=== PATIENT | male | born 1955 | race Caucasian/White ===

== ENCOUNTER 2018-12-20 07:02 | Emergency (ER) | payer MEDICAID ==
[~2018-12-20] VITALS: Ht 170.2 cm; Wt 99.8 kg
--- NOTE | 2018-12-20 07:25 | NUR ---
C/C "I HAVE FREQUENT AND UNCONTROLABLE URINE", +HEMATURIA, +DYSURIA, +DIARRHEA, PATIENT GAVE UA SAMPLE, BREATHING EVEN AND UNLABORED, NO SOB NOTED, PLACED ON MONITOR. NEEDS ATTENDED, WILL CONTINUE TO MONITOR.
[2018-12-20 07:40] LABS: BASOPHILS # (AUTO) 0.1 /CMM (0.0-0.2); BASOPHILS % (AUTO) 1.1 % (0.0-2.0); HEMATOCRIT 43 % (39-51); HEMOGLOBIN 14.4 g/dL (13.5-17.5); LYMPHOCYTES # (AUTO) 2.2 /CMM (0.8-4.8); MEAN CORPUSCULAR HGB CONC 33 g/dl (31.0-36.0); MEAN CORPUSCULAR VOLUME 94 fL (80-96); MONOCYTES # (AUTO) 1.6 /CMM (0.1-1.30); MONOCYTES % (AUTO) 12.9 % (2.0-12.0); NEUTROPHILS # (AUTO) 8.1 /CMM (1.8-8.9); PLATELET COUNT (AUTO) 222 /CMM (150-450); WHITE BLOOD COUNT (AUTO) 12.1 K/uL (4.3-11.0)
[2018-12-20 07:46] LABS: CALCIUM, SERUM 8.5 mg/dL (8.5-10.1)
[2018-12-20 07:48] LABS: APPEARANCE,URINE Cloudy (CLEAR); BILIRUBIN,URINE Negative (NEGATIVE); BLOOD, URINE Moderate Ery/uL (NEGATIVE); COLOR,URINE Yellow (YELLOW); KETONES,URINE 15 (NEGATIVE); LEUKOCYTE ESTERASE ,URINE Large (NEGATIVE); NITRITE, URINE Positive (NEGATIVE); PROTEIN,URINE 30 mg/dl (NEGATIVE); UGLUCOSE Negative (NEGATIVE)
[2018-12-20 07:52] LABS: ALBUMIN 2.7 g/dL (3.4-5.0); BILIRUBIN,DIRECT 0.2 mg/dL (0.0-0.2); BILIRUBIN,TOTAL 0.7 mg/dL (0.2-1.0); TOTAL PROTEIN, SERUM 6.7 g/dL (6.4-8.2)
[2018-12-20 07:54] LABS: WBC,URINE 80-100 /HPF (0-3)
[2018-12-20 07:55] LABS: BACTERIA,URINE Moderate /HPF (None Seen); SQUAMOUS EPITHELIAL CELL,UR Few /HPF (None Seen)
[2018-12-20] MEDS ORDERED: IV NS 0.9% 1,000 ML BAG IV ONE ×2 (08:00→08:30)
[2018-12-20] MEDS ORDERED: CEFTRIAXONE 1GM BAG (ER ONLY) 50 ML IV ONE (08:11)
[2018-12-20] MEDS ORDERED: CEFTRIAXONE 1 G in IV D5W 50 ML IV SCH (08:30)
--- NOTE | 2018-12-20 08:32 | NUR ---
EMAIL MARKETING MANAGER MARIA VICTORIA MADE AWARE OF CONSULT.
--- NOTE | 2018-12-20 08:40 | NUR ---
SWEATBAND DECORATING MACHINE OPERATOR MARIA VICTORIA CONSULTED WITH THE PATIENT.
--- NOTE | 2018-12-20 08:45 | NUR ---
KENTON received a call from ED requesting for SW to assess pt. for homelessness. Pt. is a 63 year old male who came to [facility] with multiple complaints. KENTON met with pt. bedside. Pt. is alert and oriented x 4. Pt. is cordial and cooperative with SW during the assessment. Pt. states he has been homeless on and off for about a year. Prior to being homeless, pt. was residing with friends. Pt. lives in his car. Pt. states he works restoring [employer] every now and then. Pt. denies any alcohol or drug use. Pt. states he smokes cigarettes occasionally. KENTON offered pt. senior care placement, however pt. declined stating he will take the resources and make arrangements on his own. KENTON also gave pt. information on Safe [employer] and explained the program to the pt. where he is able to park his car in designated parking lots arranged by [facility]. Pt. was also given the following resources: [facility] located at [address] [facility] [address] [facility] ; [employer] [place], [address] [place] [address] [place] ; [employer] [place], [address] [facility] ; [facility] Homeless Resource Directory which includes food stamps, transitional housing, showers and hot meals etc; Mental Health clinics such as [facility] ; [facility] ; and Health clinic such as [facility] . Pt. was provided with breakfast. Homeless Patient Waiver Form was signed by the patient and placed in pt's chart. No other social service needs are requested at this time.
--- NOTE | 2018-12-20 09:19 | NUR ---
Rx provided, patient discharged in stable condition, resources provided. Written and verbal after care instructions given. Patient verbalizes understanding of instruction. Addendum: 12/20/18 at 0919 by IMER PIV and ID band removed.
[2018-12-20 09:20] VITALS: BP 125/99
== END 2018-12-20 09:22 | disposition home or self-care (01) ==
LOC: ER 07:02
DX: N39.0 Urinary tract infection, site not specified (principal); Z59.0 Homelessness
CPT/HCPCS: 36415; 80048; 80076; 81001; 83690; 85025; 87077; 87086; 87186; 96365; 99283; J0696 ×2; J7030 ×2; J7060; 81000-TC

== ENCOUNTER 2021-07-15 00:01 | Emergency (ER) | payer MEDICAID ==
[~2021-07-15] VITALS: Ht 170.2 cm; Wt 95.3 kg
--- NOTE | 2021-07-15 00:11 | NUR ---
CALLED FOR TRIAGE NOT IN WAITING ROOM
--- NOTE | 2021-07-15 01:00 | NUR ---
PATIENT BIBS C/O DIFFUSED ABDOMINAL PAIN X1WEEK. PATIENT DENIES ANY N/V/D. PATIENT ALERT AND ORIENTED X4. AMBULATORY WITH NON LABORED BREATHING AND STEADY GAIT.
--- NOTE | 2021-07-15 01:30 | NUR ---
PT TAKEN TO AND RETURNED FROM CT
[2021-07-15 01:44] LABS: BASOPHILS % (AUTO) 0.3 % (0.0-2.0); HEMATOCRIT 44 % (39-51); HEMOGLOBIN 14.5 g/dL (13.5-17.5); LYMPHOCYTES % (AUTO) 29.2 % (20.0-44.0); MEAN CORPUSCULAR HGB CONC 33 g/dl (31.0-36.0); MEAN CORPUSCULAR VOLUME 94 fL (80-96); MONOCYTES # (AUTO) 0.9 K/uL (0.1-1.30); MONOCYTES % (AUTO) 8.6 % (2.0-12.0); NEUTROPHILS % (AUTO) 58.9 % (43.0-81.0); PLATELET COUNT (AUTO) 324 K/uL (150-450); RED BLOOD CELL COUNT(AUTO) 4.66 MIL/uL (4.5-6.0); WHITE BLOOD COUNT (AUTO) 10.1 K/uL (4.3-11.0)
[2021-07-15 01:51] LABS: BILIRUBIN,URINE NEGATIVE (NEGATIVE); COLOR,URINE YELLOW (YELLOW); LEUKOCYTE ESTERASE ,URINE NEGATIVE (NEGATIVE); NITRITE, URINE NEGATIVE (NEGATIVE); PROTEIN,URINE NEGATIVE (NEGATIVE); UGLUCOSE NEGATIVE (NEGATIVE); UROBILINOGEN,URINE 0.2 EU/dL (0.2)
[2021-07-15 02:00] LABS: CALCIUM, SERUM 8.3 mg/dL (8.5-10.1); CARBON DIOXIDE 27 mmol/L (21-32); CHLORIDE 104 mmol/L (98-107); GLUCOSE 100 mg/dL (74-106); POTASSIUM 3.7 mmol/L (3.5-5.1); SODIUM SERUM 139 mmol/L (136-145); UREA NITROGEN, BLOOD 17 mg/dL (7-18)
[2021-07-15 02:00] LABS: BACTERIA,URINE Few /HPF (None Seen); MUCUS,URINE Moderate /LPF (None Seen); RBC,URINE 0-2 /HPF (0-2); SQUAMOUS EPITHELIAL CELL,UR Few /HPF (None Seen); URINE AMORPHOUS URATE Few /HPF (None Seen)
[2021-07-15 02:06] LABS: ALANINE AMINOTRANSFERASE 30 U/L (12-78); ALBUMIN 3.1 g/dL (3.4-5.0); ALKALINE PHOSPHATASE 102 U/L (46-116); ASPARTATE AMINOTRANSFERASE 17 U/L (15-37); BILIRUBIN,DIRECT 0.1 mg/dL (0.0-0.2); BILIRUBIN,TOTAL 0.2 mg/dL (0.2-1.0); LIPASE 175 U/L (73-393); TOTAL PROTEIN, SERUM 6.3 g/dL (6.4-8.2)
[2021-07-15] MEDS ORDERED: POLY17PO4 PO (02:27)
[2021-07-15] MEDS ORDERED: DOCU-141 PO (02:27)
--- NOTE | 2021-07-15 02:39 | NUR ---
Patient discharged to home in stable condition. Written and verbal after care instructions given. Patient verbalizes understanding of instruction.
[2021-07-15 02:40] VITALS: BP 144/72
== END 2021-07-15 02:45 | disposition home or self-care (01) ==
LOC: ER 00:07
DX: K59.00 Constipation, unspecified (principal); R59.0 Localized enlarged lymph nodes; F17.200 Nicotine dependence, unspecified, uncomplicated; Z60.2 Problems related to living alone
CPT/HCPCS: 36415; 71045-TC; 80048-TC; 80076-TC; 81001; 83690-TC; 84484-TC; 85025-TC